=== PATIENT | female | born 1985 | race Caucasian/White ===

== ENCOUNTER 2017-10-30 06:57 | Inpatient (IN) | payer OTHER ==
[~2017-10-30] VITALS: Ht 167.6 cm; Wt 83.9 kg
[2017-10-30 08:33] LABS: ABSOLUTE BASOPHIL COUNT 0 /CUMM (0.0-0.2); ABSOLUTE EOSINOPHIL COUNT 0 /CUMM (0.0-0.7); ABSOLUTE GRANULOCYTE CT 10.2 /CUMM (1.4-6.5); ABSOLUTE LYMPH COUNT 1.2 /CUMM (1.2-3.4); ABSOLUTE MONOCYTE COUNT 0.5 /CUMM (0.10-0.60); BASOPHIL % 0.2 % (0.0-2.0); EOSINOPHIL % 0.2 % (0-5); HEMATOCRIT 40.1 % (37-47); MEAN CORPUSCULAR HGB 32.8 PG (27.0-31.0); MEAN CORPUSCULAR HGB CONC 34.3 G/DL (33.0-37.0); MEAN CORPUSCULAR VOLUME 95.5 FL (81.0-99.0); MEAN PLATELET VOLUME 9.9 FL (7.4-10.4); PLATELET COUNT 211 /CUMM (130-400); RBC DISTRIBUTION WIDTH 12.5 % (11.5-14.5); RED BLOOD CELL CT 4.19 /CUMM (4.20-5.40); WHITE BLOOD CELL COUNT 11.9 /CUMM (4.8-10.8)
[2017-10-30 08:46] LABS: GRANULOCYTE % 85.2 % (42.2-75.2)
--- NOTE | 2017-10-30 08:46 | History & Physical ---
General Information and HPI MD Statement: I have seen and personally examined ANIA ESQUIVEL and documented this H&P. The patient is a 32 year old female at 41 weeks and 4 days gestation who presented with a chief complaint of Labor pains, no ROM some bloody show positive FM. Source of Information: patient, old records Exam Limitations: no limitations History of Present Illness: pt has been liya since early this am no ROM PNC WNL AROM clear BP elevated PIH labs ordered although there is no edema and dtr's are normal probable elevated secondary to pain. 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 EENTM: Denies: blurred vision, double vision, visual changes. Cardiovascular: Denies: chest pain, edema, palpitations. Respiratory: Denies: cough. GI: Denies: diarrhea, nausea, vomiting. Neurological/Psychological: Denies: anxiety, depressed. Exam & Diagnostic Data Last 24 Hrs of Vital Signs/I&O vss Bp 140 /80 Intake & Output / 1600 / 0800 / 0000 Intake Total Output Total Balance Patient 185 lb Weight Obstetric Exam Wgt Gained During : 23# Pelvimetry: seems adequate Dilation (cm): 4 Effacement (%): 80 Station: -2 Membranes: AROM Fluid: clear Fundal Height (cm): 38 Multiple Gestation? No Contractions: every 3 minutes Infant #1 - FHR Baseline: 130 Category: 1 Estimated Weight: 3800G Presentation: vtx Patient for Induction? No Physical Exam General Appearance Alert, Oriented X3, Cooperative, Moderate Distress Skin No Rashes HEENT Atraumatic Neck Supple Cardiovascular Regular Rate Lungs Clear to Auscultation Abdomen Soft, No Tenderness Neurological Normal Gait, Normal Speech, Strength at 5/5 X4 Ext, Normal Tone, Reflexes 2+ Extremities No Clubbing, No Cyanosis, No Edema Vascular Normal Pulses Labs Blood Type & Rh: A+ Antibody Screen: NEG Hct/Hgb & Platelets #1: 38.3/12.2/294 Hct/Hgb & Platelets #2: 35.8/11.4/240 Rubella: IMMUNE VDRL #1: NR VDRL #2: NR HbsAg: NEG HIV #1: NR HIV #2 NR 1 Hr P Group B Strep: NEG Initial Ultrasound: 03/09/2017 Anatomy Ultrasound: 06/04/2017 Ultrasound for EFW: 09/25/17 25%tile Genetic Testing: CF neg Last 24 Hrs of Labs/Rajiv: Laboratory Tests 10/30/17 0750: Creatinine Pending, Uric Acid Pending, AST Pending, ALT Pending, Lactate Dehydrogenase Pending, CBC w Diff Pending, WBC Pending, RBC Pending, Hgb Pending , Hct Pending, MCV Pending, MCH Pending, RDW Pending, Plt Count Pending, MPV Pending, Gran % Pending, Lymphocytes % Pending, Monocytes % Pending, Eosinophils % Pending, Basophils % Pending, Absolute Granulocytes Pending, Absolute Lymphocytes Pending, Absolute Monocytes Pending, Absolute Eosinophils Pending, Absolute Basophils Pending, PUBS MCHC Pending, Urine Color YEL, Urine Clarity CLEAR, Urine pH 6.0, Ur Specific [place] >= 1.030, Urine Protein NEG, Urine Ketones NEG, Urine Nitrite NEG, Urine Bilirubin NEG, Urine Urobilinogen 0.2, Ur Leukocyte Esterase NEG, Ur Microscopic EXAM NOT REQUIRED, Urine Hemoglobin NEG, Urine Glucose NEG Assessment/Plan Assessment/Plan: iup at 41 weeks active labor FHR cat 1 AROM clear requesting epidural will prehydrate and place epidural. As Ranked By This Provider Problem List: 1. Normal labor Core Measures Venous Thromboembolism VTE Risk Factors / No Mechanical VTE Prophylaxis d/t LowRisk-No Interven Req'd No VTE Pharm Prophylaxis d/t LowRisk-No Interven Req'd Attending MD Review Statement Attending Statement Attending MD Statement: examined this patient, discussed with family, discussed w/nursing
--- NOTE | 2017-10-30 10:13 | PN- OBGYN ---
Surgical Brief Attending Note Brief Attending Note: Called to see pt soon after epidural placed BP 120/74 decyl to 90's rx'd with O2 terb 0.25mg and ephedrine X2 Scalp electrode placed FHR recovered with second ephedrine pt now 8 cm 90% -1 station BP droped again to 95/75 anasthesia at bedside giving ephedrine Bp recovered again. FHR recovered. PLAN watch BP Rx low bp with ephedrine expectnant management.
--- NOTE | 2017-10-30 15:22 | Labor & Delivery Summary ---
Delivery Summary Vaginal Delivery: Vaginal: vertex Episiotomy/Lacerations: Type: FIRST DEGREE Repair: 3-0 POLYSORB Anesthesia: BLOCK Placenta: Placenta: spontanteous, normal, 3 vessel Anesthesia: block Apgars - 1 Min: 9 Apgars - 5 Min: 9 Additional Comments: DELIVERED WITH EPIDURAL ONLY SMALL FIRST DEGREE SULSUS TEAR.
[2017-10-31 03:33] VITALS: BP 100/60
--- NOTE | 2017-10-31 09:20 | PN- Post Delivery/GYN ---
Subjective Subjective: doing well, no complaints. tolerate diet, void without difficulties. ambulating well. pt desires to go home tonight. Review of Systems Constitutional: Reports: no symptoms. EENTM: Reports: no symptoms. Cardiovascular: Reports: no symptoms. Respiratory: Reports: no symptoms. Gastrointestinal: Reports: no symptoms. Genitourinary: Reports: see HPI. Musculoskeletal: Reports: no symptoms. All Other Systems: Reviewed and Negative Objective Last 24 Hrs of Vital Signs/I&O Vital Signs Date Time Temp Pulse Resp B/P B/P Pulse O2 O2 Flow FiO2 Mean Ox Delivery Rate 10/31 0333 100/60 Physical Exam: VSS general: NAD CV RRR lungs CTA B/L Abdomen: soft, nontender, uterus firm, fundus below umbilicus. lochia mild Ext: DCT (-) Current Medications: Current Medications Sig/Fausto Start time Last Medication Dose Route Stop Time Status Admin Acetaminophen 650 MG Q4P PRN 10/30 1530 AC PO Butorphanol Tartrate 1 MG Q4P PRN 10/30 0845 DC 10/30 IM 0838 Butorphanol Tartrate 1 MG Q4P PRN 10/30 0845 DC 10/30 IV 0839 Chloroprocaine HCl 30 ML .STK-MED ONE 10/30 1432 DC IV 10/30 1433 Docusate Sodium 100 MG BID PRN 10/30 1530 AC PO Ephedrine 25 MG .STK-MED ONE 10/30 0939 DC IV 10/30 0940 Hydroxyzine HCl 50 MG AT BEDTIME NEED.. 10/30 1530 AC PO Ibuprofen 800 MG Q6P PRN 10/30 1530 AC 10/31 PO 0915 Ketorolac 30 MG ONCE ONE 10/30 1530 DC 10/30 Tromethamine IV 10/30 1531 1524 Lactated Ringer's 1,000 ML Q8H 10/30 1045 DC 10/30 IV 1035 Magnesium Hydroxide 30 ML DAILY PRN 10/30 1530 AC PO Oxycodone/ 1 TAB Q3P PRN 10/30 1530 AC Acetaminophen PO Oxytocin 20 UNITS Q5H 10/30 1530 DC 10/30 Lactated Ringer's 1,000 ML IV 10/30 2029 1523 Oxytocin 30 UNITS PER PROTOCL 10/30 1230 DC 10/30 Lactated Ringer's 500 ML IV 1227 Senna 374 MG AT BEDTIME NEED.. 10/30 1530 AC PO Terbutaline Sulfate 0.25 MG ONCE ONE 10/30 0935 DC 10/30 SC 10/30 0936 1040 Last 24 Hrs of Labs/Rajiv: Laboratory Tests 10/31/17 0830: CBC w Diff Pending, WBC Pending, RBC Pending, Hgb Pending, Hct Pending, MCV Pending, MCH Pending, RDW Pending, Plt Count Pending, MPV Pending, PUBS MCHC Pending Assessment/Plan Assessment/Plan 32yo, s/p , PPD #1 1. encourage ambulation and 2. RT PP care 3. may d/c home tonight, f/u in office in 2 wks and 6 wks. discharge instructions given. Problem List: 1. Normal labor Attending MD Review Statement Attending Statement Attending MD Statement: examined this patient, discussed with family, discussed with nursing
[2017-10-31] MEDS ORDERED: IBUPROFEN800 M1 PO (09:21)
[2017-10-31 10:21] LABS: ABSOLUTE BASOPHIL COUNT 0 /CUMM (0.0-0.2); ABSOLUTE EOSINOPHIL COUNT 0 /CUMM (0.0-0.7); ABSOLUTE GRANULOCYTE CT 9.6 /CUMM (1.4-6.5); ABSOLUTE LYMPH COUNT 1.8 /CUMM (1.2-3.4); ABSOLUTE MONOCYTE COUNT 0.6 /CUMM (0.10-0.60); BASOPHIL % 0.3 % (0.0-2.0); EOSINOPHIL % 0.3 % (0-5); GRANULOCYTE % 79.8 % (42.2-75.2); MEAN CORPUSCULAR HGB 33.8 PG (27.0-31.0); MEAN CORPUSCULAR HGB CONC 34.7 G/DL (33.0-37.0); MEAN CORPUSCULAR VOLUME 97.5 FL (81.0-99.0); MEAN PLATELET VOLUME 9.8 FL (7.4-10.4); PLATELET COUNT 183 /CUMM (130-400); RBC DISTRIBUTION WIDTH 12.8 % (11.5-14.5); RED BLOOD CELL CT 3.36 /CUMM (4.20-5.40); WHITE BLOOD CELL COUNT 12.1 /CUMM (4.8-10.8)
[2017-10-31 10:38] LABS: HEMATOCRIT 32.8 % (37-47)
== END 2017-10-31 19:40 | DRG 775 ==
LOC: CBCO 06:57 → GNO 08:16
PROVIDERS: Obstetrics & Gynecology
PROC: 10E0XZZ Delivery of Products of Conception, External Approach (ICD-10-PCS; principal; 2017-10-30)
PROC: 0HQ9XZZ Repair Perineum Skin, External Approach (ICD-10-PCS; 2017-10-30)
DX: O48.0 Post-term pregnancy (principal); I95.89 Other hypotension; Z3A.41 41 weeks gestation of pregnancy; Z37.0 Single live birth; O70.0 First degree perineal laceration during delivery
CPT/HCPCS: GNOS; 36415; 81003; J0595; J1885; J7120